=== PATIENT | female | born 1995 | race African-American/Black ===

== ENCOUNTER 2017-09-30 18:12 | Emergency (ER) | payer MEDICAID ==
[~2017-09-30] VITALS: Ht 167.6 cm; Wt 57.5 kg
[2017-09-30] MEDS ORDERED: IBUPROFEN 600MG TABLET PO ONE (19:00)
[2017-09-30 20:35] VITALS: BP 110/69
== END 2017-09-30 23:01 | disposition home or self-care (01) ==
LOC: ER 18:12
DX: M79.672 Pain in left foot (principal); X50.1XXA Overexertion from prolonged static or awkward postures, initial encounter; Y93.89 Activity, other specified; Y92.89 Other specified places as the place of occurrence of the external cause; Y99.8 Other external cause status
CPT/HCPCS: 73630; 81025; 99284; Z7610

== ENCOUNTER 2018-12-21 15:07 | Inpatient (IN) | payer MEDICAID ==
[~2018-12-21] VITALS: Ht 167.6 cm; Wt 59.0 kg
[2018-12-21] MEDS ORDERED: MULT-1146 PO (15:51)
[2018-12-21] MEDS ORDERED: ACETAMINOPHEN 325MG TABLET PO STA (16:01)
[2018-12-21] MEDS ORDERED: SODIUM CHLORIDE 0.9% 1000ML BAG (SEPSIS BOLUS) IV ONE (16:15)
[2018-12-21] MEDS ORDERED: KETOROLAC 15MG/ML VIAL IV ONE (16:30)
[2018-12-21 16:36] LABS: BASOPHILS % 0.6 % (0.0-2.0); EOSINOPHILS % 0.2 % (0.0-5.0); HEMATOCRIT. 29.9 % (36.0-48.0); HEMOGLOBIN. 10.5 g/dL (12.0-16.0); LYMPHOCYTES % 10.9 % (20.0-50.0); MEAN CORPUSCULAR HEMOGLOBIN 30.9 pg (28.0-32.0); MEAN CORPUSCULAR VOLUME 87.6 fL (81.0-99.0); MEAN PLATELET VOLUME 9.1 fl (7.4-10.4); MONOCYTES % 13.1 % (2.0-8.0); NEUTROPHILS % 75.2 % (40.0-76.0); PLATELET 276 x1000/uL (130-400); RED BLOOD CELL COUNT 3.42 mill/uL (4.2-5.4); RED CELL DISTRIBUTION WIDTH 14.9 % (11.6-14.6)
[2018-12-21 16:41] LABS: CHLORIDE 101 mEq/L (98-107)
[2018-12-21 16:43] LABS: PROTHROMBIN TIME 10.7 sec (9.6-11.0)
[2018-12-21 16:51] LABS: HCG SCREEN NEGATIVE
[2018-12-21 17:14] LABS: CLARITY URINE CLEAR (CLEAR); COLOR URINE YELLOW (YELLOW); KETONES URINE NEGATIVE (NEGATIVE); LEUKOCYTE ESTERASE URINE TRACE (NEGATIVE); NITRITE URINE NEGATIVE (NEGATIVE); OCCULT BLOOD URINE NEGATIVE (NEGATIVE); PROTEIN URINE NEGATIVE (NEGATIVE); SPECIFIC GRAVITY URINE 1.003 (1.005-1.030)
[2018-12-21 18:02] LABS: *AMPHETAMINES SCREEN URINE NEGATIVE (NEGATIVE); *BARBITURATES SCREEN URINE NEGATIVE (NEGATIVE); *BENZODIAZEPINES SCREEN URINE NEGATIVE (NEGATIVE)
[2018-12-21 18:03] LABS: *COCAINE SCREEN URINE NEGATIVE (NEGATIVE); CANNABINOID URINE SCREEN NEGATIVE (NEGATIVE); METHADONE URINE SCREEN NEGATIVE (NEGATIVE); OPIATES URINE SCREEN NEGATIVE (NEGATIVE); PHENCYCLIDINE URINE SCREEN NEGATIVE (NEGATIVE)
[2018-12-21] MEDS ORDERED: ONDANSETRON HCL 4MG/2ML INJ IV STA (18:40)
[2018-12-21] MEDS ORDERED: MORPHINE SULFATE 4 MG/ML CPJ (NOT FOR IM USE) IV STA (18:40)
[2018-12-21] MEDS ORDERED: ACETAMINOPHEN 325MG TABLET PO PRN (21:15)
[2018-12-21] MEDS ORDERED: DIPHENHYDRAMINE 50MG/ML VIAL IV PRN (21:15)
[2018-12-21] MEDS ORDERED: MAGNESIUM/ALUMINUM HYDROXIDE/SIMETHICONE 30ML UDC PO PRN (21:15)
[2018-12-21] MEDS ORDERED: GUAIFENESIN 200MG/10ML SUGAR FREE UDC PO PRN (21:15)
[2018-12-21] MEDS ORDERED: CLONIDINE 0.1MG TABLET PO PRN (21:15)
[2018-12-21] MEDS ORDERED: DOCUSATE SODIUM 100MG CAPSULE PO PRN (21:15)
[2018-12-21] MEDS ORDERED: LORAZEPAM 2MG/ML CPJ IV PRN (21:15)
[2018-12-21] MEDS: HYDROCODONE/ACETAMINOPHEN 10/325MG TABLET PO PRN (21:29)
[2018-12-21] MEDS ORDERED: MORPHINE SULFATE 2 MG/ML CPJ (NOT FOR IM USE) IV PRN (21:55)
[2018-12-21] MEDS ORDERED: NA PHOS,M-B/NA PHOS,DI-BA ENEMA 118ML PR PRN (23:00)
[2018-12-22] VITALS: BP 100/57
[2018-12-22] MEDS ORDERED: LEVOFLOXACIN 500MG PREMIX 100 ML IV SCH (01:30)
[2018-12-22] MEDS: SODIUM CHLORIDE 0.45% 1,000 ML IV SCH ×3 (01:50→22:14)
[2018-12-22 04:00] VITALS: BP 100/54
[2018-12-22] MEDS: HYDROCODONE/ACETAMINOPHEN 10/325MG TABLET PO PRN ×3 (04:24→18:35)
[2018-12-22 06:58] LABS: HEMATOCRIT. 27.4 % (36.0-48.0); HEMOGLOBIN. 9.8 g/dL (12.0-16.0); MEAN CORPUSCULAR HEMOGLOBIN 31.5 pg (28.0-32.0); MEAN CORPUSCULAR VOLUME 88.5 fL (81.0-99.0); MEAN PLATELET VOLUME 9.3 fl (7.4-10.4); PLATELET 215 x1000/uL (130-400); RED CELL DISTRIBUTION WIDTH 14.8 % (11.6-14.6)
[2018-12-22 07:11] LABS: CHLORIDE 105 mEq/L (98-107)
[2018-12-22 07:34] LABS: LDL CHOLESTEROL 67 mg/dL (5-100)
[2018-12-22 07:35] LABS: HDL CHOLESTEROL 48 mg/dL (40-59); T4 FREE 0.95 ng/dL (0.76-1.46)
[2018-12-22 08:00] VITALS: BP 102/59
[2018-12-22] MEDS: ASPIRIN 81MG EC TABLET PO SCH (09:00)
[2018-12-22] MEDS: ENOXAPARIN 40MG/0.4ML SYR SUBCUT SCH (09:00)
[2018-12-22 12:00] VITALS: BP 97/58
[2018-12-22] MEDS: ONDANSETRON HCL 4MG/2ML INJ IV PRN (15:27)
[2018-12-22 16:00] VITALS: BP 103/67
[2018-12-22 17:08] LABS: CREATINE KINASE 35 IU/L (26-192); T4 FREE 1.18 ng/dL (0.76-1.46)
[2018-12-22 17:09] LABS: CREATINE KINASE MB FRACTION < 1.0 ng/mL (0.5-3.6)
[2018-12-22 20:00] VITALS: BP 106/64
[2018-12-22 20:30] LABS: NUCLEATED RED BLOOD CELLS 1 /100 WBC
[2018-12-22 20:31] LABS: PLATELET ESTIMATE NORMAL
[2018-12-22] MEDS: LEVOFLOXACIN 500MG PREMIX 100 ML IV SCH (22:11)
[2018-12-23] VITALS (7 sets, daily range): BP systolic 97–105; BP diastolic 46–64
[2018-12-23 00:41] LABS: CREATINE KINASE 37 IU/L (26-192)
[2018-12-23 00:45] LABS: CREATINE KINASE MB FRACTION < 1.0 ng/mL (0.5-3.6)
[2018-12-23] MEDS: ONDANSETRON HCL 4MG/2ML INJ IV PRN (04:03)
[2018-12-23 07:39] LABS: CREATINE KINASE 34 IU/L (26-192)
[2018-12-23 07:42] LABS: CREATINE KINASE MB FRACTION < 1.0 ng/mL (0.5-3.6)
[2018-12-23] MEDS: SODIUM CHLORIDE 0.45% 1,000 ML IV SCH ×2 (07:45→14:50)
[2018-12-23] MEDS: ASPIRIN 81MG EC TABLET PO SCH (08:18)
[2018-12-23] MEDS: ENOXAPARIN 40MG/0.4ML SYR SUBCUT SCH (08:18)
[2018-12-23 11:25] LABS: HEMATOCRIT 27.4 % (36.0-48.0); HEMOGLOBIN 9.7 g/dL (12.0-16.0); MEAN CORPUSCULAR HEMOGLOBIN 31.7 pg (28.0-32.0); MEAN CORPUSCULAR VOLUME 89.8 fL (81.0-99.0); PLATELET 234 x1000/uL (130-400); RED BLOOD CELL COUNT 3.05 mill/uL (4.2-5.4); RED CELL DISTRIBUTION WIDTH 14.5 % (11.6-14.6)
[2018-12-23] MEDS: LEVOFLOXACIN 500MG PREMIX 100 ML IV SCH (20:10)
[2018-12-24 04:00] VITALS: BP 95/51
[2018-12-24] MEDS: SODIUM CHLORIDE 0.45% 1,000 ML IV SCH (05:57)
[2018-12-24 07:30] LABS: HEMATOCRIT. 29.1 % (36.0-48.0); HEMOGLOBIN. 10.2 g/dL (12.0-16.0); MEAN CORPUSCULAR HEMOGLOBIN 30.9 pg (28.0-32.0); MEAN CORPUSCULAR VOLUME 87.9 fL (81.0-99.0); MEAN PLATELET VOLUME 9.5 fl (7.4-10.4); PLATELET 272 x1000/uL (130-400); RED BLOOD CELL COUNT 3.31 mill/uL (4.2-5.4); RED CELL DISTRIBUTION WIDTH 14.7 % (11.6-14.6)
[2018-12-24 07:53] LABS: CHLORIDE 103 mEq/L (98-107)
[2018-12-24 08:00] VITALS: BP 97/55
[2018-12-24] MEDS: ENOXAPARIN 40MG/0.4ML SYR SUBCUT SCH (09:00)
[2018-12-24] MEDS: ASPIRIN 81MG EC TABLET PO SCH (09:00)
[2018-12-24 09:11] VITALS: BP 97/55
[2018-12-24 10:21] LABS: NUCLEATED RED BLOOD CELLS 1 /100 WBC
[2018-12-24 10:22] LABS: PLATELET ESTIMATE NORMAL
== END 2018-12-24 09:50 | disposition home or self-care (01) | DRG 662 ==
LOC: ER 15:07 → 8WST 21:01 → EDBEDREQ 21:06 → EDBEDREQTM 21:06 → ENRESERV 21:20
PROVIDERS: ADMIT Internal Medicine; ATTEND Internal Medicine
DX: D57.01 Hb-SS disease with acute chest syndrome (principal); R65.10 Systemic inflammatory response syndrome (SIRS) of non-infectious origin without acute organ dysfunction; E86.0 Dehydration
CPT/HCPCS: 36415; 71045; 76705; 80048; 80061; 80305; 81003; 82550; 82553; 83036; 83605; 83880; 84145; 84439; 84443; 84484; 84703; 85027; 85044; 85379; 86850; 86900; 87070; 87255; 93005; 93306; 99285; J1650; J1885; J1956; J2270; J2405; J7030

== ENCOUNTER 2019-02-17 02:40 | Emergency (ER) | payer MEDICAID ==
[~2019-02-17] VITALS: Ht 167.6 cm; Wt 59.0 kg
[~2019-02-17 02:40] MED LIST: MULT-1146 PO
[2019-02-17 02:47] VITALS: BP 113/71
[2019-02-17] MEDS ORDERED: KETOROLAC 30MG/ML VIAL IM ONE (04:15)
== END 2019-02-17 05:47 | disposition home or self-care (01) ==
LOC: ER 03:05
DX: S30.0XXA Contusion of lower back and pelvis, initial encounter (principal); S20.219A Contusion of unspecified front wall of thorax, initial encounter; Z79.899 Other long term (current) drug therapy; V49.19XA Passenger injured in collision with other motor vehicles in nontraffic accident, initial encounter; Y93.89 Activity, other specified; Y92.89 Other specified places as the place of occurrence of the external cause; Y99.8 Other external cause status
CPT/HCPCS: 71045; 72070; 81025; 96372; 99283; J1885

== ENCOUNTER 2019-05-04 19:33 | Emergency (ER) | payer MEDICAID ==
[~2019-05-04] VITALS: Ht 167.6 cm; Wt 59.0 kg
[2019-05-05] MEDS ORDERED: PENICILLIN V POTASSIUM 250MG TABLET PO ONE
[2019-05-05 00:13] VITALS: BP 111/63
== END 2019-05-05 00:14 | disposition home or self-care (01) ==
LOC: ER 19:33
DX: S93.401A Sprain of unspecified ligament of right ankle, initial encounter (principal); W01.0XXA Fall on same level from slipping, tripping and stumbling without subsequent striking against object, initial encounter; Y93.9 Activity, unspecified; Y92.9 Unspecified place or not applicable; J02.9 Acute pharyngitis, unspecified; D57.1 Sickle-cell disease without crisis
CPT/HCPCS: 73610; 99283

== ENCOUNTER 2020-03-23 00:28 | Emergency (ER) | payer MEDICAID ==
[~2020-03-23] VITALS: Ht 167.6 cm; Wt 59.0 kg
[2020-03-23] MEDS ORDERED: TETANUS, DIPHTHERIA, PERTUSSIS VAC/PF 0.5ML (>7YR OLD) IM ONE (01:00)
[2020-03-23] MEDS ORDERED: BACITRACIN ZINC OINT UDPKT TOP ONE (01:00)
[2020-03-23] MEDS ORDERED: IBUPROFEN 600MG TABLET PO ONE (01:00)
[2020-03-23 01:16] VITALS: BP 110/62
== END 2020-03-23 01:17 | disposition home or self-care (01) ==
LOC: ER 00:28
DX: S61.213A Laceration without foreign body of left middle finger without damage to nail, initial encounter (principal); D57.1 Sickle-cell disease without crisis; F32.9 Major depressive disorder, single episode, unspecified; W26.0XXA Contact with knife, initial encounter; Y93.89 Activity, other specified; Y92.010 Kitchen of single-family (private) house as the place of occurrence of the external cause
CPT/HCPCS: 90471; 90715; 99283

== ENCOUNTER 2020-12-05 19:11 | Emergency (ER) | payer MEDICAID ==
[~2020-12-05] VITALS: Ht 167.6 cm; Wt 62.0 kg
[2020-12-05] MEDS ORDERED: ASPIRIN 81MG TABLET PO ONE (21:15)
[2020-12-05] MEDS ORDERED: SODIUM CHLORIDE 0.9% 1,000 ML IV ONE ×2 (21:15→23:30)
[2020-12-05 21:23] LABS: CHLORIDE 105 mEq/L (98-107)
[2020-12-05 21:33] LABS: HEMOGLOBIN. 10.6 g/dL (12.0-16.0); MEAN CORPUSCULAR HEMOGLOBIN 30.4 pg (28.0-32.0); MEAN CORPUSCULAR VOLUME 86.3 fL (81.0-99.0); MEAN PLATELET VOLUME 8.3 fl (7.4-10.4); PLATELET 381 x1000/uL (130-400); RED BLOOD CELL COUNT 3.47 mill/uL (4.2-5.4); RED CELL DISTRIBUTION WIDTH 15.3 % (11.6-14.6)
[2020-12-05 22:08] LABS: PLATELET ESTIMATE NORMAL
[2020-12-05] MEDS ORDERED: MORPHINE SULFATE 4 MG/ML CPJ (NOT FOR IM USE) IV STA (23:30)
[2020-12-05] MEDS ORDERED: ONDANSETRON HCL 4MG/2ML INJ IV STA (23:30)
[2020-12-06] MEDS ORDERED: MORPHINE SULFATE 4 MG/ML CPJ (NOT FOR IM USE) IV NR (00:45)
[2020-12-06] MEDS ORDERED: MORPHINE SULFATE 2 MG/ML CPJ (NOT FOR IM USE) IV NR (01:00)
[2020-12-06 05:07] VITALS: BP 98/64
[2020-12-06] MEDS ORDERED: IOHEXOL-350 100 ML BOTTLE ONE (05:55)
== END 2020-12-06 05:11 | disposition home or self-care (01) ==
LOC: ER 19:11
DX: R07.9 Chest pain, unspecified (principal); F41.9 Anxiety disorder, unspecified; F32.9 Major depressive disorder, single episode, unspecified; D57.1 Sickle-cell disease without crisis
CPT/HCPCS: 36415; 71045; 71275; 80053; 81025; 84484; 85025; 85044; 85379; 93005; 96361; 96374; 96375; 99291; J2270; J2405; J7030; Q9967; Z7610

== ENCOUNTER 2021-07-19 21:45 | Emergency (ER) | payer MEDICAID ==
[~2021-07-19] VITALS: Ht 170.2 cm; Wt 57.3 kg
[2021-07-20] MEDS ORDERED: HYDROCODONE/ACETAMINOPHEN 5/325MG TABLET PO ONE
[2021-07-20] MEDS ORDERED: SODIUM CHLORIDE 0.9% 1,000 ML IV ONE
[2021-07-20 00:31] LABS: BASOPHILS % 0.6 % (0.0-2.0); EOSINOPHILS % 0.4 % (0.0-5.0); HEMATOCRIT. 27.6 % (36.0-48.0); HEMOGLOBIN. 9.7 g/dL (12.0-16.0); LYMPHOCYTES % 13.4 % (20.0-50.0); MEAN CORPUSCULAR HEMOGLOBIN 30.9 pg (28.0-32.0); MEAN CORPUSCULAR VOLUME 88.2 fL (81.0-99.0); MEAN PLATELET VOLUME 8.7 fl (7.4-10.4); MONOCYTES % 10.3 % (2.0-8.0); NEUTROPHILS % 75.3 % (40.0-76.0); PLATELET 281 x1000/uL (130-400); RED BLOOD CELL COUNT 3.13 mill/uL (4.2-5.4); RED CELL DISTRIBUTION WIDTH 15.5 % (11.6-14.6)
[2021-07-20 00:40] LABS: CHLORIDE 104 mEq/L (98-107)
[2021-07-20 00:51] LABS: CLARITY URINE CLEAR (CLEAR); COLOR URINE YELLOW (YELLOW); KETONES URINE NEGATIVE (NEGATIVE); LEUKOCYTE ESTERASE URINE NEGATIVE (NEGATIVE); NITRITE URINE NEGATIVE (NEGATIVE); OCCULT BLOOD URINE 2+ (NEGATIVE); PROTEIN URINE NEGATIVE (NEGATIVE); SPECIFIC GRAVITY URINE 1.008 (1.005-1.030)
[2021-07-20] MEDS ORDERED: ONDANSETRON HCL 4MG/2ML INJ IV ONE (02:30)
[2021-07-20] MEDS ORDERED: MORPHINE SULFATE 4 MG/ML CPJ (NOT FOR IM USE) IV ONE (02:30)
[2021-07-20] MEDS ORDERED: HYDR-4001 MT (03:13)
[2021-07-20] MEDS ORDERED: ONDA4TAB5 MT (03:13)
[2021-07-20 04:29] VITALS: BP 101/61
== END 2021-07-20 04:29 | disposition home or self-care (01) ==
LOC: ER 21:45
DX: D57.00 Hb-SS disease with crisis, unspecified (principal); R50.9 Fever, unspecified; F41.9 Anxiety disorder, unspecified; F32.9 Major depressive disorder, single episode, unspecified; Z20.822 Contact with and (suspected) exposure to COVID-19
CPT/HCPCS: 36415; 71045; 80053; 81003; 83605; 85025; 87040; 87426; 96361; 96374; 96375; 99284; J2270; J2405; J7030

== ENCOUNTER 2022-03-20 00:37 | Emergency (ER) | payer MEDICAID ==
[~2022-03-20] VITALS: Ht 167.6 cm; Wt 59.0 kg
[~2022-03-20 00:37] MED LIST changes: +HYDR-4001 MT; +ONDA4TAB5 MT
[2022-03-20 01:06] LABS: CLARITY URINE TURBID (CLEAR); COLOR URINE YELLOW (YELLOW); KETONES URINE NEGATIVE (NEGATIVE); LEUKOCYTE ESTERASE URINE 3+ (NEGATIVE); NITRITE URINE NEGATIVE (NEGATIVE); OCCULT BLOOD URINE 3+ (NEGATIVE); PH URINE 5.5 (4.5-8.0); PROTEIN URINE 2+ (NEGATIVE); SPECIFIC GRAVITY URINE 1.012 (1.005-1.030)
[2022-03-20] MEDS ORDERED: PHEN-815 MT (04:18)
[2022-03-20] MEDS ORDERED: CEPH500T MT (04:18)
[2022-03-20 04:30] VITALS: BP 110/54
== END 2022-03-20 04:37 | disposition home or self-care (01) ==
LOC: ER 00:37
DX: N39.0 Urinary tract infection, site not specified (principal); D57.1 Sickle-cell disease without crisis
CPT/HCPCS: 81003; 87077; 87186; 99283

== ENCOUNTER 2022-04-22 01:19 | Emergency (ER) | payer MEDICAID ==
[~2022-04-22] VITALS: Ht 167.6 cm; Wt 59.0 kg
[~2022-04-22 01:19] MED LIST changes: +CEPH500T MT; +PHEN-815 MT
[2022-04-22 01:26] VITALS: BP 108/70
[2022-04-22] MEDS ORDERED: IBUP-2029 MT (02:56)
== END 2022-04-22 03:13 | disposition home or self-care (01) ==
LOC: ER 01:19
DX: S92.355A Nondisplaced fracture of fifth metatarsal bone, left foot, initial encounter for closed fracture (principal); S93.402A Sprain of unspecified ligament of left ankle, initial encounter; D57.1 Sickle-cell disease without crisis; X50.1XXA Overexertion from prolonged static or awkward postures, initial encounter; Y93.89 Activity, other specified; Y92.89 Other specified places as the place of occurrence of the external cause; Y99.8 Other external cause status
CPT/HCPCS: 73610; 73630; 81025; 99284; Z7610

== ENCOUNTER 2022-04-22 13:26 | Emergency (ER) | payer MEDICAID ==
[~2022-04-22] VITALS: Ht 167.6 cm; Wt 62.0 kg
[~2022-04-22 13:26] MED LIST changes: +IBUP-2029 MT
[2022-04-22 13:31] VITALS: BP 103/66
== END 2022-04-22 14:42 | disposition home or self-care (01) ==
LOC: ER 13:33
DX: S92.355A Nondisplaced fracture of fifth metatarsal bone, left foot, initial encounter for closed fracture (principal); D57.1 Sickle-cell disease without crisis; X50.1XXA Overexertion from prolonged static or awkward postures, initial encounter; Y93.89 Activity, other specified; Y92.89 Other specified places as the place of occurrence of the external cause; Y99.8 Other external cause status
CPT/HCPCS: 29515; 99283

== ENCOUNTER 2023-05-27 09:28 | Emergency (ER) | payer MEDICAID ==
[~2023-05-27] VITALS: Ht 167.6 cm; Wt 58.0 kg
[2023-05-27 09:34] VITALS: BP 104/66; PULSE 81; RESP 16; TEMP 98.7; O2SAT 99
[2023-05-27 10:10] LABS: CLARITY URINE TURBID (CLEAR); COLOR URINE YELLOW (YELLOW); GLUCOSE URINE NEGATIVE (NEGATIVE); KETONES URINE NEGATIVE (NEGATIVE); LEUKOCYTE ESTERASE URINE 3+ (NEGATIVE); NITRITE URINE NEGATIVE (NEGATIVE); OCCULT BLOOD URINE 3+ (NEGATIVE); PROTEIN URINE 2+ (NEGATIVE)
[2023-05-27 10:20] LABS: WBC URINE TNTC /hpf (0-2)
[2023-05-27 10:24] LABS: BACTERIA URINE 1+; SQUAMOUS EPITHELIAL CELL URINE NONE SEEN /lpf (RARE/1+)
[2023-05-27] MEDS ORDERED: PHEN-815 MT (10:51)
[2023-05-27] MEDS ORDERED: NITR100C MT (10:51)
== END 2023-05-27 11:01 | disposition home or self-care (01) ==
LOC: ER 10:21
DX: N39.0 Urinary tract infection, site not specified (principal); Z79.899 Other long term (current) drug therapy
CPT/HCPCS: 81003; 81025; 99283